=== PATIENT | male | born 1960 ===

== ENCOUNTER → 2017-03-10 | Outpatient (CLI) | payer BC | END | disposition home or self-care (01) | LOC: GMAB 10:31 | PROVIDERS: ATTEND Family Medicine | DX: Z00.01 Encounter for general adult medical examination with abnormal findings (principal) | CPT/HCPCS: 84443; 86803; G0103 ==

== ENCOUNTER → 2017-05-14 | Outpatient (CLI) | payer BC ==
--- NOTE | 2017-05-14 20:01 | US ---
EXAM DESCRIPTION: Renal: Ultrasound. CLINICAL HISTORY: ACUTE KIDNEY FAILURE COMPARISON: Bilateral renal arterial Doppler evaluation on the same visit. TECHNIQUE: Transcutaneous scanning: Two-dimensional and Doppler modes. FINDINGS: Right kidney measures 9.4 x 5.5 x 4.7 cm; mid-renal cortical thickness 12 mm. . Normal cortical echogenicity. No hydronephrosis No calcifications. Smooth contour of the kidney with no perinephric fluid. Normal vascularity. Proximal ureter not visualized. Left kidney measures 10.3 x 5.7 x 5.0 cm; mid-renal cortical thickness 12 mm.. 9 x 9 mm hypoechoic area with smooth margins no posterior features. No hydronephrosis. No calcifications. Smooth contour of the kidney with no perinephric fluid. Normal vascularity.. Proximal ureter not visualized. Urinary bladder not visualized. Abdominal aorta diameter (cm): Mid - 1.9 IMPRESSION: Bilateral kidneys with minimal thinning of the renal cortex but normal echogenicity. No hydronephrosis or perinephric fluid. No significant 1 cm anechoic versus hypoechoic object in the superior left kidney. Nonvascular with well-defined margins. Consider follow-up renal ultrasound 3 month interval. Normal caliber of the mid abdominal aorta. Electronically signed by: Dung Comer MD 05/14/2017 8:00 PM DISTRICT MANAGER [employer] Workstation: [id number]
== END ==
LOC: US 07:51
PROVIDERS: ATTEND Internal Medicine Nephrology
DX: N18.4 Chronic kidney disease, stage 4 (severe) (principal); N17.9 Acute kidney failure, unspecified

== ENCOUNTER → 2017-12-30 | Outpatient (CLI) | payer BC | LOC: GMAE 10:29 | PROVIDERS: ATTEND Family Medicine | DX: Z00.01 Encounter for general adult medical examination with abnormal findings (principal) ==

== ENCOUNTER 2018-01-29 05:43 | Day surgery (SDC) | payer BC ==
[2018-01-29] MEDS ORDERED: LACTATED RINGERS 1,000 ML ONE (06:48)
[2018-01-29] MEDS ORDERED: fentaNYL CITRATE INJ 50 MCG/ML AMP ONE (07:15)
[2018-01-29] MEDS ORDERED: MIDAZOLAM INJ 2 MG/2 ML VIAL ONE (07:15)
--- NOTE | 2018-01-29 08:29 | OP ---
DATE OF PROCEDURE: 01/29/18 PREOPERATIVE DIAGNOSIS: 1. Screening for colorectal cancer. 2. Family history of colorectal cancer in his grandfather. POSTOPERATIVE DIAGNOSIS: 1. One large diverticulum in the transverse colon. 2. Otherwise, normal colonoscopy. PROCEDURE PERFORMED: 1. Colonoscopy. ENDOSCOPIST: Robbie Eduardo MD ANESTHESIA: Monitored anesthesia care. PREPARATION: [place] Bowel Prep Score 3, 3, 3, total of 9. COMPLICATIONS: None. INDICATION: The patient is a 57-year-old male with no GI symptoms and in need of screening for colorectal cancer who also has a family history of colorectal cancer in his grandfather who of this at age 62. PROCEDURE IN DETAIL: Physical examination was performed and the patient was counseled regarding the major risks and benefits associated with the procedure. The patient verbalized understanding and agreement with the same and all questions were answered to the patient's satisfaction. After adequate sedation was achieved by the nurse political science professor, the patient was placed in the left lateral decubitus position and a digital rectal exam was performed. This examination was within normal limits. Flexible adult colonoscope was then lubricated, inserted into the rectum, and advanced under direct visualization to the level of the cecum, which was identified by both visual and anatomic landmarks. A photograph was taken of the appendiceal orifice. The scope was then fully withdrawn while carefully examining the mucosa from the cecum to the anal canal. The colonic mucosa appeared to be within normal limits. There was one large diverticulum in the transverse colon, but no polyps were noted at any point during the procedure. Rectal retroflexion revealed no pathology. The colonoscope was completely retrieved upon exiting the anal canal and the procedure was terminated. The patient tolerated the procedure well without immediate complications and was transferred to the Recovery Room in stable condition. RECOMMENDATION: 1. Followup in my clinic as needed for any issues. 2. Repeat colonoscopy in 5 years given his family history of colon cancer or sooner if clinically indicated. #[id number] MTDD
[2018-01-29 08:54] VITALS: BP 116/78; TEMP 97.2; O2SAT 95
[2018-01-29] MEDS ORDERED: LIDOCAINE 1% 10 ML VIAL INJ ONE (10:00)
[2018-01-29] MEDS ORDERED: PROPOFOL 200 MG/20 ML VIAL IV ONE (10:00)
== END 2018-01-29 08:50 | disposition home or self-care (01) ==
LOC: AMB 05:43
PROVIDERS: ATTEND Family Medicine
DX: Z12.11 Encounter for screening for malignant neoplasm of colon (principal); K57.30 Diverticulosis of large intestine without perforation or abscess without bleeding; E78.5 Hyperlipidemia, unspecified; Z79.899 Other long term (current) drug therapy
CPT/HCPCS: 00812; 45378; J2250; J3010; J3490; J7120

== ENCOUNTER → 2019-01-13 | Outpatient (CLI) | payer BC | LOC: GMAE 12:48 | PROVIDERS: ATTEND Family Medicine | DX: Z00.00 Encounter for general adult medical examination without abnormal findings (principal); Z12.5 Encounter for screening for malignant neoplasm of prostate ==

== ENCOUNTER → 2019-01-15 | Outpatient (CLI) | payer BC ==
--- NOTE | 2019-01-16 12:11 | US ---
EXAM DESCRIPTION: Testicular: Ultrasound. CLINICAL HISTORY: 58 years Male OTHER SPECIFIED DISORDERS OF MALE GENITAL ORGANS COMPARISON: Renal ultrasound April 2017. TECHNIQUE: Transcutaneous scanning ; isaacs-scale and Doppler modes. FINDINGS: Dimensions of the right testicle are 4.5 x 3.0 x 2.3 cm, with normal echogenicity and normal color Doppler flow. Epididymal head measures 14.6 x 9.8 x 7 mm, with normal echogenicity and normal color Doppler flow. No scrotal wall thickening. Small Hydrocele. Dimensions of the left testicle are 4.6 x 2.8 x 2.7 cm, with normal echogenicity and normal color Doppler flow. Epididymal head measures almost 40 mm, with 3.7 x 2.4 x 2.1 cm cyst in the head. Solid epididymal tissue measures 14.8 x 7.2 x 9.6 mm with normal echogenicity and normal color Doppler flow. No scrotal wall thickening. Small Hydrocele. IMPRESSION: 1. Bilateral small hydroceles in the scrotum. 2. Normal size appearance and vascularity of the right testicle and epididymis, and the left testicle. 3. Almost 4 cm cyst in the head of the left epididymis. Otherwise normal echogenicity and vascularity. Electronically signed by: Dung Comer MD 01/16/2019 12:09 PM CDT
== END ==
LOC: US 09:52
PROVIDERS: ATTEND Family Medicine
DX: N50.89 Other specified disorders of the male genital organs (principal); N43.3 Hydrocele, unspecified; N50.3 Cyst of epididymis

== ENCOUNTER → 2020-02-22 | Outpatient (CLI) | payer BC | LOC: GMAE 11:01 | PROVIDERS: ATTEND Family Medicine | DX: Z00.00 Encounter for general adult medical examination without abnormal findings (principal) ==